=== PATIENT | male | born 1960 | race Caucasian/White ===

== ENCOUNTER 2020-06-02 13:43 | Emergency (ER) | payer OTHER ==
[2020-06-02 13:53] VITALS: TEMP 96.4
--- NOTE | 2020-06-02 13:53 | ED.PDOC ---
History of Present Illness - General Stated Complaint: Patient states he injured himself at work about 30 minutes prior to admission.But over to lift up a heavy object at which time he developed sudden onset of a severe nonradiating pain in his posterior right Patient thigh. Time Seen by Provider: 06/02/20 13:52 Source: patient Exam Limitations: no limitations - History of Present Illness Timing/Duration: 1/2 hour Severity: severe Improving Factors: rest Worsening Factors: movement Associated Symptoms: denies symptoms Allergies/Adverse Reactions: Allergies Codeine Allergy (Verified 06/02/20 14:03) Can tolerate hydrocodone and oxycodone. Past Medical History (General) - Patient Medical History Hx Hypertension: Yes Family Medical History - Family History Mother Family History: Unknown Physical Exam - Physical Exam General Appearance: Alert, Obvious distress Eye Exam: bilateral normal Ears, Nose, Throat: hearing grossly normal, normal ENT inspection Neck: non-tender Respiratory: chest non-tender, normal breath sounds Cardiovascular/Chest: normal peripheral pulses, regular rate, rhythm Gastrointestinal/Abdominal: normal bowel sounds, non tender, soft Back Exam: normal inspection, no CVA tenderness, no vertebral tenderness Extremity: other - Posterior right upper and mid thigh quizzically tender to palpation over the hamstring. No discoloration or deformity noted. No pain or limitation on range of motion of the right hip. 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 06/02/20 14:43 Pain relieved, patient comfortable supine. All diagnostic findings treatment plan and follow-up discussed with the patient. He is amenable to discharge. 06/02/20 14:50 Repeat blood pressure 135/93. - Results/Orders Results/Orders: EXAM DESCRIPTION: Femur,Right CLINICAL HISTORY: Injury COMPARISON: None. IMPRESSION: 2 views of the right femur shows no acute fracture, focal bone destruction, or joint dislocation. Midshaft of the femur is partly included in the [id number]. Soft tissues are unremarkable. Electronically signed by: Jonah Hayden MD 06/02/2020 2:33 PM [facility] Departure - Departure Clinical Impression: Hamstring strain Time of Disposition: 14:44 Disposition: Discharge to Home or Self Care Condition: Excellent Instructions: Lower Extremity Muscle Strain (DC) Diet: regular diet Activity: other - No work for 2 days. Then no lifting of any heavy objects for several weeks. Additional Instructions: Avoid sudden movements which will exacerbate your pain. See your doctor for additional pain medications as needed.Take your [id number] Aleve and muscle relaxer for PAIN & Spasm.
[2020-06-02] MEDS ORDERED: ORPHENADRINE CITRATE 30 MG/ML AMP IM ONE (14:01)
[2020-06-02] MEDS ORDERED: KETOROLAC TROMETHAMINE INJ 60 MG/2 ML VIAL IM ONE (14:01)
--- NOTE | 2020-06-02 14:34 | RAD ---
EXAM DESCRIPTION: Femur,Right CLINICAL HISTORY: Injury COMPARISON: None. IMPRESSION: 2 views of the right femur shows no acute fracture, focal bone destruction, or joint dislocation. Midshaft of the femur is partly included in the [id number]. Soft tissues are unremarkable. Electronically signed by: Jonah Hayden MD 06/02/2020 2:33 PM [facility]
[2020-06-02 15:10] VITALS: BP 135/93; O2SAT 95
== END 2020-06-02 15:02 | disposition home or self-care (01) ==
LOC: ER 13:43
DX: S76.811A Strain of other specified muscles, fascia and tendons at thigh level, right thigh, initial encounter (principal); X50.0XXA Overexertion from strenuous movement or load, initial encounter; Y99.0 Civilian activity done for income or pay; Z88.5 Allergy status to narcotic agent; Y92.9 Unspecified place or not applicable
CPT/HCPCS: 73551; J1885; J2360